=== PATIENT | male | born 1955 | race Caucasian/White ===

== ENCOUNTER → 2022-08-10 | Outpatient (CLI) | payer MEDICARE, SELFPAY ==
[2022-08-10 10:23] LABS: Vitamin D,25 Hydroxy 32.3 ng/mL
[2022-08-10 10:33] LABS: Anion Gap 5 (5-15); BUN 21 mg/dL (7-18); BUN/Creat Ratio 16.2 RATIO (10-20); Calcium,Total 9.2 mg/dL (8.5-10.1); Chloride 105 mmol/L (98-107); EST Glomerular Filtration Rate 59 mL/min (>60); Est Glom Filt Rate - Afr Amer 71 mL/min (>60); Glucose 111 mg/dL (74-106); PSA,Total - Annual Screen 2.71 ng/mL (0.00-4.00); Potassium 4.3 mmol/L (3.5-5.1); Sodium Level 140 mmol/L (136-145)
== END | disposition home or self-care (01) ==
PROVIDERS: PCP Family Medicine; Referring Provider Family Medicine; Visit Provider Family Medicine
DX: Z00.00 Encounter for general adult medical examination without abnormal findings (principal); E55.9 Vitamin D deficiency, unspecified
CPT/HCPCS: 36415; 80048; 82306; 84153; 84403; G0103

== ENCOUNTER 2023-02-14 11:16 | Emergency (ER) | payer MEDICARE, SELFPAY ==
[2023-02-14 11:17] VITALS: PULSE 54; RESP 15; TEMP 35.1; O2SAT 100; BMI 28.1
--- NOTE | 2023-02-14 11:23 | ED.RN ---
RIGHT FOOT NOTED TO BE PALE AND UNABLE TO PALPATE A PULSE AT THIS TIME. DOPPLER USED.
--- NOTE | 2023-02-14 11:25 | CT_ITS ---
We are attempting to reach an attending provider to discuss findings. An addendum with communication details will be sent when the communication is complete. STUDY: CTA CHEST REASON FOR EXAM: Male, 67 years old. Back pain -- With runoff RADIATION DOSAGE (If Supplied By Facility): CTDIvol = ( 11.74 ) mGy, DLP = ( 1540.04 ) mGycm TECHNIQUE: The examination was performed with the intravenous administration of [id number] 100ML. Post-processing of the angiographic images was performed, with multiplanar reformation and 3D reconstruction. Individualized dose optimization techniques were used for this CT. COMPARISON: CTA of the abdomen and pelvis dated February 14, 2023 FINDINGS: A [place] a dissection is present starting at the supravalvular region of the proximal/ascending thoracic aorta continuing through the aortic arch and the full length of the descending thoracic aorta, down into the abdominal aorta where the flap and false lumen is on the right and very shallow and partially thrombosed. The dissection flap of the abdominal aorta continues into the origins of the bilateral common iliac arteries with thrombosis of the left false lumen and significant thrombosis of the false and true lumen of the right common iliac artery although some blood flow and contrast is seen distal to the thrombus and continuing into both the right internal and external arteries. However left lobe throughout the full length of the right common femoral artery is poor in the lumen appears moderately narrowed or partially collapsed likely due to the near complete thrombotic occlusion of near the origin of the right common iliac artery in the lower abdomen. No contrast opacification is seen in the right popliteal artery or the calf arteries which is likely due to poor hemodynamics rather than complete occlusion. There is mild aneurysmal dilatation of the aortic arch maximally measuring 3.16 cm in diameter. The dissection flap does not extend into the branches of the right brachiocephalic, left common carotid artery, or left subclavian artery. There is no vascular perforation or mediastinal hemorrhage. Normal enhancement of the main pulmonary artery and right and left pulmonary arteries. Normal enhancement of the bilateral peripheral pulmonary arteries. There is no demonstrated pulmonary embolism. There is atherosclerotic calcification of the aortic arch with tortuosity. Normal heart and pericardium. There are calcifications of the coronary arteries. Normal mediastinum. Normal hilar regions. Normal visualized trachea and bronchi. The lungs are well expanded. Normal pulmonary parenchyma. No consolidation or pulmonary edema or pleural effusion is seen. Normal pleura. Normal chest wall structures. There are degenerative changes of thoracic spine. Normal visualized upper abdomen. Small benign cysts are seen in the liver. Moderate size simple cyst is present anterior aspect of the right kidney measuring 4.[address]/CTA Chest W/WO Contrast IMPRESSION: 1. A [place] a dissection is present starting at the supravalvular region of the proximal/ascending thoracic aorta continuing through the aortic arch and the full length of the descending thoracic aorta, down into the abdominal aorta where the flap and false lumen is on the right and very shallow and partially thrombosed. The dissection flap of the abdominal aorta continues into the origins of the bilateral common iliac arteries with thrombosis of the left false lumen and significant thrombosis of the false and true lumen of the right common iliac artery although some blood flow and contrast is seen distal to the thrombus and continuing into both the right internal and external arteries. However left lobe throughout the full length of the right common femoral artery is poor in the lumen appears moderately narrowed or partially collapsed likely due to the near complete thrombotic occlusion of near the origin of the right common iliac artery in the lower abdomen. 2. No contrast opacification is seen in the right popliteal artery or the calf arteries which is likely due to poor hemodynamics rather than complete occlusion. 3. There is mild aneurysmal dilatation of the aortic arch maximally measuring 3.16 cm in diameter. 4. The dissection flap does not extend into the branches of the right brachiocephalic, left common carotid artery, or left subclavian artery. There is no vascular perforation or mediastinal hemorrhage Electronically Signed: Tyson Conley MD at 13:13 EDT ,
--- NOTE | 2023-02-14 11:26 | EKG12_ITS ---
Test Reason : cp Blood Pressure : / mmHG Vent. Rate : 051 BPM Atrial Rate : 051 BPM P-R Int : 140 ms QRS Dur : 094 ms QT Int : 482 ms P-R-T Axes : 019 061 029 degrees QTc Int : 444 ms Sinus bradycardia Otherwise normal ECG Confirmed by MICA HUBER, LORENA ([id number]), editorial assistant PJ ARCOS ([id number]) on 02/15/2023 9:07:09 AM Referred By: Confirmed By:LORENA NINO MD
--- NOTE | 2023-02-14 11:29 | EX.ED.DYSGE1 ---
HPI History of Present Illness Chief Complaint: Chest Pain Informant: patient Onset/Context/Timing Onset: Today and Hours (1.5) Context: Sudden Onset Quality: Aching Location: Right groin and lower leg Worsened by: Nothing Relieved by: Nothing Narrative Narrative: Patient presents with pain in his chest, back, and right groin that began today. Patient states he was doing some push-ups when this began. Patient states his pain currently is only in his right groin and right lower extremity. Patient admits to some weakness of his right leg. Patient states he is unable to move his right leg. Patient also admits to some numbness in his right leg. Patient denies any weakness or numbness to his right arm. Patient states he is having some pain in his back currently. Patient denies any chest pain at this time. Patient states this resolved after several minutes. PFSH PFSH Medical History no medical history no medical history Home Medications escitalopram oxalate 10 mg tablet 10 mg PO DAILY 02/14/23 [History Last Taken Unknown] Allergy/AdvReac Type Severity Reaction Status Date / Time No Known Allergies Allergy Verified 02/14/23 11:17 Surgical History no surgical history no surgical history Social History Smoking Status: Former smoker ROS ROS ED Constitutional Constitutional ED: Denies chills or fever(s) Eyes Eyes: Denies blurry vision or change in vision ENT ENT ED: Denies rhinorrhea or sore throat Cardiovascular Cardiovascular: Reports chest pain; Denies palpitations Respiratory/Chest Respiratory/Chest: Denies cough or dyspnea Gastrointestinal Gastrointestinal: Denies nausea or vomiting Genitourinary Genitourinary ED: Denies dysuria or hematuria Musculoskeletal Musculoskeletal: Reports back pain; Denies neck pain Integumentary Denies abscess or rash Neurologic Neurologic: Reports paresthesias RLE and weakness; Denies headache(s) Allergic/Immunologic Allergic/Immunologic ED: Denies mouth swelling or urticaria EXAM Physical Exam Const Vital Signs: 02/14/23 11:17 02/14/23 11:22 02/14/23 11:30 Temperature 95.1 F L Temperature Source Temporal Pulse Rate 54 L Respiratory Rate 15 Respiratory Effort Short of Breath Respiratory Pattern Normal Blood Pressure 118/56 L Blood Pressure Mean 76 Pulse Ox 100 Oxygen Delivery Method Room Air Oxygen Flow Rate (L/min) 02/14/23 11:51 02/14/23 12:03 Temperature Temperature Source Pulse Rate 74 68 Respiratory Rate 22 H 15 Respiratory Effort Respiratory Pattern Blood Pressure 174/55 H 173/60 H Blood Pressure Mean 94 97 Pulse Ox 100 100 Oxygen Delivery Method Room Air Nasal Cannula Oxygen Flow Rate (L/min) 2 Positive well nourished and well developed General Appearance ED: well developed HEENT Reports moist mucous membranes Neck supple and no JVD Resp normal respiratory effort and clear to auscultation bilaterally Cardio regular rhythm Rate: bradycardia GI non-distended Auscultation: normoactive bowel sounds Palpation: soft Extremity Extremity Narrative: There is diminished pedal pulse on the right. There is delayed capillary refill of the toes. The skin is warm. There is a palpable femoral pulse bilaterally, it is slightly weaker on the right. Neuro oriented x3 and CN's II-XII intact bilaterally Sensorium / Orientation: alert Motor Exam: strength abnormal other (Strength is 0/5 in the right lower extremity. Strength is 5/5 bilaterally in the upper extremities and left lower extremity.) Psych Mood & Affect: anxious MDM MDM MDM Narrative Medical decision making narrative: Differential diagnosis includes aortic dissection, aortic aneurysm, stroke, ischemic limb, cardiac dysrhythmia, cardiac ischemia. CTA of the chest, abdomen, and pelvis with runoff will be obtained to assess for aortic dissection, a aortic aneurysm, and limb ischemia. CBC will be obtained to assess for anemia and leukocytosis. Basic metabolic profile will be obtained to assess for electrolyte abnormality and renal function. Type and screen will be obtained for possible transfusion. High-sensitivity troponin will be obtained to assess for cardiac ischemia. Serum lactate will be obtained to assess for limb ischemia. Lab Data Labs: Laboratory Results - last 24 hr 02/14/23 02/14/23 02/14/23 11:19 11:19 11:19 WBC 14.2 H RBC 4.73 Hgb 14.3 Hct 43.6 MCV 92.2 MCH 30.2 MCHC 32.8 RDW Std Deviation 42.7 RDW Coeff of [place] 12.6 Plt Count 218 MPV 9.6 Immature Gran % (Auto) 1.400 H Neut % (Auto) 43.5 L Lymph % (Auto) 40.3 [place] % (Auto) 9.9 Eos % (Auto) 4.1 Baso % (Auto) 0.8 Absolute Neuts (auto) 6.2 Absolute Lymphs (auto) 5.72 H Nucleated RBC % 0 PT 13.3 INR 1.0 APTT 25.4 Sodium 139 Potassium 3.3 L Chloride 106 Carbon Dioxide 19.0 L Anion Gap 14 BUN 19 H Creatinine 1.68 H Estim Creat Clear Calc 41.85 Est GFR (MDRD) Af Amer 53 L Est GFR (MDRD) Non-Af 44 L BUN/Creatinine Ratio 11.3 Glucose 175 H Calcium 8.8 Radiography Diagnostic Testing: CTA of the chest, abdomen, and pelvis with runoffs was obtained. There is an aortic dissection of the ascending and descending aorta into the left iliac artery. There is diminished blood flow of the right lower extremity from the mid thigh distally. This was interpreted by the radiologist and was also independently reviewed by myself. EKG Initial EKG: Attestation: I personally reviewed and interpreted this EKG as follows: Interpretation: No Acute Injury Pattern and Sinus Bradycardia (51) Comments: EKG was obtained. On my independent interpretation, it showed a sinus bradycardia with a rate of 51. ND interval, QRS interval, and QTc intervals were all normal. [place] was normal. There are no acute ST or T wave changes. Prior EKG tracings: not available for review Prior: No Prior Treatment and Re-Evaluation :: Patient was given IV fluids, morphine, and Zofran. Patient was advised of the need for urgent transfer for repair of his aortic dissection. Auto launch was called and the patient will need to be transferred by helicopter. Case was discussed with thoracic surgery and vascular surgery at [facility]. Patient was accepted to main [facility] at [facility]. Patient and spouse understood and were agreeable with the plan. All questions were answered. Critical Care Time Critical Care Time: Yes Critical care time (excluding procedures): 30-74 minutes (39), Including time spent:, Discussing w/Patient &/or Family/Inclusion Specialist, Discussing w/Consultants, Arranging Admission or Transfer and Performing Direct Patient Care at Bedside Discharge Plan Triage Chief Complaint: Chest Pain ED Provider: Roc Jules Dx/Rx/DC Orders Clinical Impression: Aortic dissection, thoracoabdominal, Bradycardia, Ischemia of right lower extremity Prescriptions: No Action escitalopram oxalate 10 mg tablet 10 mg PO DAILY Label Comments: Take 1 tablet by mouth daily Primary Care Provider: Elieser Coulter Referrals: Elieser Coulter MD [Primary Care Provider] - Disposition Disposition: Acute Care Hospital Discharge Location: [facility]
[2023-02-14 11:30] VITALS: BP 118/56
[2023-02-14] MEDS: Ondansetron 4 MG/2 ML Vial IV (11:31)
[2023-02-14] MEDS: 0.9% Normal Saline 1,000 ML 999 ML IV (11:31)
[2023-02-14] MEDS: Morphine 4 MG/ML Syringe IV (11:31)
[2023-02-14 11:42] LABS: Absolute Lymphocyte Count 5.72 X10^3/uL (0.83-4.51); Absolute Neutrophil Count 6.2 X10^3/uL (2.0-7.7); Basophil# 0.11 X10^3/uL; Basophil% 0.8 % (0-1); Eosinophil# 0.58 X10^3/uL; Eosinophils% 4.1 % (0-5); Hematocrit 43.6 % (40-54); Hemoglobin 14.3 g/dL (13.0-16.5); Lymphocyte # 5.72 X10^3/ul (0.83-4.51); Lymphocyte % 40.3 % (19-41); Mean Corp Hgb Conc 32.8 g/dL (32-36); Mean Corpuscular Hgb 30.2 pg (27.0-32.0); Mean Corpuscular Volume 92.2 fL (80-94); Mean Platelet Vol. 9.6 fl (6.2-12.0); Monocyte# 1.41 X10^3/uL; Monocyte% 9.9 % (0-10); NRBC Flagged by Analyzer 0 % (0-5); Neutrophil # 6.17 X10^3/uL (2.7-7.7); Neutrophil % 43.5 % (47-70); POSITIVE DIFFERENTIAL YES; Platelet Count 218 K/mm3 (150-450); RBC Distribution Width CV 12.6 % (11.6-14.6); RBC Distribution Width SD 42.7 fl (35.1-43.9); Red Blood Count 4.73 M/mm3 (4.6-6.2); White Blood Count 14.2 K/mm3 (4.4-11.0)
[2023-02-14 11:51] VITALS: BP 174/55; PULSE 74; RESP 22; O2SAT 100
[2023-02-14 11:52] LABS: Anion Gap 14 (5-15); BUN 19 mg/dL (7-18); BUN/Creat Ratio 11.3 RATIO (10-20); Calcium,Total 8.8 mg/dL (8.5-10.1); Chloride 106 mmol/L (98-107); Creatinine, Serum 1.68 mg/dL (0.70-1.30); EST Glomerular Filtration Rate 44 mL/min (>60); Est Glom Filt Rate - Afr Amer 53 mL/min (>60); Estimated Creatinine Clearance 41.85 ml/min; Glucose 175 mg/dL (74-106); Potassium 3.3 mmol/L (3.5-5.1); Sodium Level 139 mmol/L (136-145)
[2023-02-14 11:56] LABS: Differential Indicated SCAN CRITERIA MET
[2023-02-14] MEDS: HYDROmorphone 1 MG/ML Syringe IV (11:57)
[2023-02-14 12:03] VITALS: BP 173/60; PULSE 68; RESP 15; O2SAT 100
[2023-02-14 12:03] LABS: Prothrombin Time (Protime)PT. 13.3 SECONDS (11.7-14.9)
--- NOTE | 2023-02-14 12:03 | CT_ITS ---
STUDY: CTA OF THE ABDOMINAL AORTA AND BILATERAL LOWER EXTREMITIES REASON FOR EXAM: Male, 67 years old. BACK PAIN RADIATION DOSAGE (If Supplied By Facility): CTDIvol = ( 11.74 ) mGy, DLP = ( 1540.04 ) mGycm TECHNIQUE: Axial CT angiography multi-detector data acquisition was obtained from the to the following intravenous administration of 100ML ISOVUE 370. Axial images and MIP images were reconstructed from the axial data set. Post-processing of the angiographic images was performed, with multiplanar reformation and 3D reconstruction. Individualized dose optimization techniques were used for this CT. TECHNICAL QUALITY: Good COMPARISON: CTA of the chest dated February 14, 2023 Descriptors of Narrowing: None (0%) Mild (< 50%) Moderate (50-70%) Severe (70-90%) Subtotal/Total Occlusion (90-100%) Non-Evaluable (technically non-diagnostic FINDINGS: A [place] a dissection is present starting at the supravalvular region of the proximal/ascending thoracic aorta continuing through the aortic arch and the full length of the descending thoracic aorta, down into the abdominal aorta where the flap and false lumen is on the right and very shallow and partially thrombosed. The dissection flap of the abdominal aorta continues into the origins of the bilateral common iliac arteries with thrombosis of the left false lumen and significant thrombosis of the false and true lumen of the right common iliac artery although some blood flow and contrast is seen distal to the thrombus and continuing into both the right internal and external arteries. However left lobe throughout the full length of the right common femoral artery is poor in the lumen appears moderately narrowed or partially collapsed likely due to the near complete thrombotic occlusion of near the origin of the right common iliac artery in the lower abdomen. No contrast opacification is seen in the right popliteal artery or the calf arteries which is likely due to poor hemodynamics rather than complete occlusion. There is mild aneurysmal dilatation of the aortic arch maximally measuring 3.16 cm in diameter. The dissection flap does not extend into the branches of the right brachiocephalic, left common carotid artery, or left subclavian artery. There is no vascular perforation or mediastinal hemorrhage Abdominal aorta: Maximum diameter of the abdominal aorta is 2.90 cm just below the diaphragmatic hiatus. Celiac and superior mesenteric arteries: Normal origin from the [place] vessel and not a dissection flap. No demonstrated narrowing. Inferior mesenteric artery: No demonstrated narrowing. Right renal artery(arteries): Mild atherosclerotic plaque and narrowing at the origin but normal distal to this region. Left renal artery(arteries): No demonstrated narrowing. Right common iliac artery: There complete thrombosis. Right external iliac artery: No demonstrated narrowing. Right internal iliac artery: No demonstrated narrowing. Left common iliac artery: Medial dissection flap and thrombosis of the false lumen but normal perfusion of three quarters of the true lumen. Left external iliac artery: No demonstrated narrowing. Left internal iliac artery: No demonstrated narrowing. RIGHT LOWER EXTREMITY Right common femoral artery: There is mild diffuse narrowing. Right profundus femoris: No demonstrated narrowing. Right superficial femoral: There is moderate diffuse narrowing. Right popliteal artery: No visualized contrast opacification likely due to poor hemodynamics/flow due to the upstream near complete robotic occlusion. Right tibioperoneal trunk: No visualized contrast opacification likely due to poor hemodynamics/flow due to the upstream near complete robotic occlusion. Right anterior tibial artery: No visualized contrast opacification likely due to poor hemodynamics/flow due to the upstream near complete robotic occlusion. Right posterior tibial artery: No visualized contrast opacification likely due to poor hemodynamics/flow due to the upstream near complete robotic occlusion. Right peroneal artery: No visualized contrast opacification likely due to poor hemodynamics/flow due to the upstream near complete robotic occlusion. LEFT LOWER EXTREMITY Left common femoral artery: No demonstrated narrowing. Left profundus femoris: No demonstrated narrowing. Left superficial femoral: No demonstrated narrowing. Left popliteal artery: No demonstrated narrowing. Left tibioperoneal trunk: No demonstrated narrowing. Left anterior tibial artery: No demonstrated narrowing. Left posterior tibial artery: No demonstrated narrowing. Left peroneal artery: No demonstrated narrowing. NONVASCULAR FINDINGS: The visualized lung bases are unremarkable. Normal liver. Small cysts are present in the liver. No intrahepatic biliary duct dilatation or liver mass. Normal gallbladder and extrahepatic biliary system. Normal spleen. Normal pancreas. Normal bilateral adrenal glands. Moderate size simple cyst of the anterior aspect of the right kidney measuring 4.61 cm.. Normal left kidney. No hydronephrosis or renal masses. No large stones. There is a small hiatal hernia. Normal small intestine. There are multiple colonic diverticula consistent with diverticulosis. No bowel dilatation or obstruction. No free air or free fluid. The appendix is visualized and appears normal. Normal inferior vena cava. Normal retroperitoneum. Normal urinary bladder. The prostate gland is mildly to moderately enlarged herniated into the base of the bladder. Normal abdominal wall. There are diffuse degenerative changes of the visualized lumbar spine. CT/CTA Abd w/Runoff W/WO Contrast IMPRESSION: 1. A [place] a dissection is present starting at the supravalvular region of the proximal/ascending thoracic aorta continuing through the aortic arch and the full length of the descending thoracic aorta, down into the abdominal aorta where the flap and false lumen is on the right and very shallow and partially thrombosed. The dissection flap of the abdominal aorta continues into the origins of the bilateral common iliac arteries with thrombosis of the left false lumen and significant thrombosis of the false and true lumen of the right common iliac artery although some blood flow and contrast is seen distal to the thrombus and continuing into both the right internal and external arteries. However left lobe throughout the full length of the right common femoral artery is poor in the lumen appears moderately narrowed or partially collapsed likely due to the near complete thrombotic occlusion of near the origin of the right common iliac artery in the lower abdomen. 2. No contrast opacification is seen in the right popliteal artery or the calf arteries which is likely due to poor hemodynamics rather than complete occlusion. 3. There is mild aneurysmal dilatation of the aortic arch maximally measuring 3.16 cm in diameter. 4. The dissection flap does not extend into the branches of the right brachiocephalic, left common carotid artery, or left subclavian artery. There is no vascular perforation or mediastinal hemorrhage Electronically Signed: Tyson Conley MD at 13:22 EDT ,
[2023-02-14 12:04] LABS: Partial Thromboplast Time 25.4 Seconds (24.1-36.2)
[2023-02-14 12:11] VITALS: BP 173/57; PULSE 59; RESP 22; TEMP 36.2; O2SAT 100
[2023-02-14 12:11] LABS: Troponin-I HS (w/2H Reflex) 7 pg/mL (3.0-78.0)
[2023-02-14 12:14] LABS: Lactic Acid 7.6 mmol/L (0.4-1.9)
[2023-02-14 12:21] VITALS: BP 177/74; PULSE 75; RESP 26; O2SAT 100
--- NOTE | 2023-02-14 12:28 | ED.RN ---
[facility] critical care transport here to get patient.
--- NOTE | 2023-02-14 12:47 | ED.RN ---
REPORT CALLED TO [facility] ED CHARGE NURSE AT THIS TIME.
[2023-02-14 13:55] LABS: Reflex Troponin-HS? (from REC) Y
[2023-02-14 15:55] LABS: Reflex Lactate? Y
== END 2023-02-14 12:36 | disposition short-term general hospital (02) ==
PROVIDERS: Emergency Provider Emergency Medicine; PCP Family Medicine; Visit Provider Emergency Medicine
DX: I71.22 Aneurysm of the aortic arch, without rupture (principal); Z87.891 Personal history of nicotine dependence; R00.1 Bradycardia, unspecified; I99.8 Other disorder of circulatory system
CPT/HCPCS: 71275; 75635; 80048; 83605; 84484; 85025; 85610; 85730; 86850; 86900; 86901; 93005; 96361; 96374; 96375; 99285; J7030; Q9967; A4216; J2405

== ENCOUNTER → 2023-06-15 | Outpatient (CLI) | payer MEDICARE, SELFPAY ==
[2023-06-15 12:21] LABS: Absolute Lymphocyte Count 2.05 X10^3/uL (0.83-4.51); Absolute Neutrophil Count 5.3 X10^3/uL (2.0-7.7); Basophil# 0.08 X10^3/uL; Basophil% 0.9 % (0-1); Eosinophil# 0.55 X10^3/uL; Eosinophils% 6.1 % (0-5); Hematocrit 33.6 % (40-54); Hemoglobin 9.9 g/dL (13.0-16.5); Lymphocyte # 2.05 X10^3/ul (0.83-4.51); Lymphocyte % 22.9 % (19-41); Mean Corp Hgb Conc 29.5 g/dL (32-36); Mean Corpuscular Hgb 25.4 pg (27.0-32.0); Mean Corpuscular Volume 86.2 fL (80-94); Mean Platelet Vol. 9.1 fl (6.2-12.0); Monocyte# 0.88 X10^3/uL; Monocyte% 9.8 % (0-10); NRBC Flagged by Analyzer 0 % (0-5); Neutrophil % 59.2 % (47-70); Platelet Count 317 K/mm3 (150-450); RBC Distribution Width CV 17.6 % (11.6-14.6); RBC Distribution Width SD 54.8 fl (35.1-43.9)
== END | disposition home or self-care (01) ==
LOC: MTLAB 09:35
PROVIDERS: PCP Family Medicine; Referring Provider Family Medicine; Visit Provider Family Medicine
DX: R31.9 Hematuria, unspecified (principal)
CPT/HCPCS: 36415; 85025

== ENCOUNTER → 2023-08-07 | Outpatient (CLI) | payer MEDICARE, SELFPAY ==
[2023-08-07 10:08] LABS: Absolute Lymphocyte Count 2.49 X10^3/uL (0.83-4.51); Absolute Neutrophil Count 5.7 X10^3/uL (2.0-7.7); Basophil# 0.07 X10^3/uL; Basophil% 0.7 % (0-1); Eosinophil# 0.66 X10^3/uL; Eosinophils% 6.6 % (0-5); Hematocrit 38.1 % (40-54); Hemoglobin 10.9 g/dL (13.0-16.5); Lymphocyte # 2.49 X10^3/ul (0.83-4.51); Lymphocyte % 25.1 % (19-41); Mean Corp Hgb Conc 28.6 g/dL (32-36); Mean Corpuscular Hgb 23.7 pg (27.0-32.0); Mean Corpuscular Volume 82.8 fL (80-94); Mean Platelet Vol. 9.2 fl (6.2-12.0); Monocyte# 0.98 X10^3/uL; Monocyte% 9.9 % (0-10); NRBC Flagged by Analyzer 0 % (0-5); Neutrophil # 5.66 X10^3/uL (2.7-7.7); Neutrophil % 56.9 % (47-70); Platelet Count 302 K/mm3 (150-450); RBC Distribution Width CV 16.6 % (11.6-14.6); RBC Distribution Width SD 50.3 fl (35.1-43.9); White Blood Count 9.9 K/mm3 (4.4-11.0)
[2023-08-07 10:34] LABS: ALB/GLOB Ratio 0.6 RATIO (0.9-2.4); AST(SGOT) 17 U/L (15-37); Alanine Aminotransfer ALT/SGPT 24 U/L (16-61); Alkaline Phosphatase 146 U/L (45-117); Anion Gap 3 (5-15); BUN 16 mg/dL (7-18); Calcium,Total 8.6 mg/dL (8.5-10.1); Chloride 107 mmol/L (98-107); Cholesterol 207 mg/dL (200); Creatinine, Serum 1.23 mg/dL (0.70-1.30); EST Glomerular Filtration Rate 62 mL/min (>60); Est Glom Filt Rate - Afr Amer 76 mL/min (>60); Globulin 4.7 g/dL (2.2-4.2); Glucose 112 mg/dL (74-106); High Density Lipoprotein 65 mg/dL; Potassium 4.3 mmol/L (3.5-5.1); Protein, Total 7.7 g/dL (6.4-8.2); Sodium Level 139 mmol/L (136-145); Triglycerides 92 mg/dL; Very Low Density Lipoprotein 18 mg/dL (5-40)
== END | disposition home or self-care (01) ==
PROVIDERS: PCP Family Medicine; Visit Provider Family Medicine
DX: D64.9 Anemia, unspecified (principal); R79.89 Other specified abnormal findings of blood chemistry; E78.5 Hyperlipidemia, unspecified
CPT/HCPCS: 36415; 80053; 80061; 85025

== ENCOUNTER → 2024-09-22 | Outpatient (CLI) | payer MEDICARE, SELFPAY ==
[2024-09-22 10:31] LABS: ALB/GLOB Ratio 0.8 RATIO (0.9-2.4); AST(SGOT) 18 U/L (15-37); Alanine Aminotransfer ALT/SGPT 22 U/L (16-61); Albumin, Serum 3.2 g/dL (3.2-5.0); Alkaline Phosphatase 109 U/L (45-117); Anion Gap 1 (5-15); BUN 20 mg/dL (7-18); BUN/Creat Ratio 14.8 RATIO (10-20); Calcium,Total 8.9 mg/dL (8.5-10.1); Chloride 107 mmol/L (98-107); Cholesterol 165 mg/dL (200); Creatinine, Serum 1.35 mg/dL (0.70-1.30); EST Glomerular Filtration Rate 56 mL/min (>60); Est Glom Filt Rate - Afr Amer 68 mL/min (>60); Globulin 3.9 g/dL (2.2-4.2); Glucose 108 mg/dL (74-106); High Density Lipoprotein 44 mg/dL; Potassium 4.1 mmol/L (3.5-5.1); Protein, Total 7.1 g/dL (6.4-8.2); Sodium Level 138 mmol/L (136-145); Triglycerides 166 mg/dL; Very Low Density Lipoprotein 33 mg/dL (5-40)
[2024-09-23 05:33] LABS: Absolute Lymphocyte Count 2.19 X10^3/uL (0.83-4.51); Basophil# 0.11 X10^3/uL; Basophil% 1.1 % (0-1); Eosinophil# 0.72 X10^3/uL; Eosinophils% 7.2 % (0-5); Hematocrit 47.3 % (40-54); Hemoglobin 15.2 g/dL (13.0-16.5); Lymphocyte # 2.19 X10^3/ul (0.83-4.51); Lymphocyte % 21.9 % (19-41); Mean Corp Hgb Conc 32.1 g/dL (32-36); Mean Corpuscular Hgb 29.6 pg (27.0-32.0); Mean Platelet Vol. 9.1 fl (6.2-12.0); Monocyte# 0.83 X10^3/uL; Monocyte% 8.3 % (0-10); NRBC Flagged by Analyzer 0 % (0-5); Neutrophil # 6.03 X10^3/uL (2.7-7.7); Neutrophil % 60.5 % (47-70); Platelet Count 254 K/mm3 (150-450); RBC Distribution Width CV 12.9 % (11.6-14.6); RBC Distribution Width SD 43.3 fl (35.1-43.9); Red Blood Count 5.14 M/mm3 (4.6-6.2)
== END | disposition home or self-care (01) ==
LOC: MFPLAB 08:38
PROVIDERS: PCP Family Medicine; Referring Provider Family Medicine; Visit Provider Family Medicine
DX: I10 Essential (primary) hypertension (principal); D64.9 Anemia, unspecified
CPT/HCPCS: 36415; 80053; 80061; 85025

== ENCOUNTER → 2025-03-18 | Outpatient (CLI) | payer MEDICARE, SELFPAY ==
[2025-03-18 18:13] LABS: ALB/GLOB Ratio 1.3 RATIO (0.9-2.4); AST(SGOT) 24 U/L (<=37); Alanine Aminotransfer ALT/SGPT 24 U/L (<=46); Albumin, Serum 3.6 g/dL (3.4-4.8); Alkaline Phosphatase 92 U/L (40-129); Anion Gap 9 (5-15); BUN 27 mg/dL (4-19); Calcium,Total 8.8 mg/dL (7.6-11.0); Carbon Dioxide 24.1 mmol/L (21.0-32.0); Chloride 106 mmol/L (98-108); Cholesterol 200 mg/dL (<=200); Creatinine, Serum 1.18 mg/dL (0.70-1.20); EST Glomerular Filtration Rate 67 (>60); Globulin 2.9 g/dL (2.2-4.2); Glucose 97 mg/dL (70-99); High Density Lipoprotein 52 mg/dL; Low Density Lipoprotein Calc. 124 mg/dL; Potassium 4.9 mmol/L (3.3-5.1); Protein, Total 6.5 g/dL (5.9-8.4); Sodium Level 139 mmol/L (133-145); Total Bilirubin 0.31 mg/dL (0.00-1.30); Triglycerides 122 mg/dL; Very Low Density Lipoprotein 24 mg/dL (5-40); cholesterol:hdl ratio screen 3.86
== END | disposition home or self-care (01) ==
LOC: MFPLAB 11:36
PROVIDERS: PCP Family Medicine; Referring Provider Family Medicine; Visit Provider Family Medicine
DX: I10 Essential (primary) hypertension (principal)
CPT/HCPCS: 36415; 80053; 80061

== ENCOUNTER → 2025-05-15 | Outpatient (CLI) | payer MEDICARE, SELFPAY ==
[2025-05-15 21:15] LABS: HIV Nonreactive (Nonreactive); Syphilis Antibodies Nonreactive (Nonreactive)
== END | disposition home or self-care (01) ==
LOC: MFPLAB 16:29
PROVIDERS: PCP Family Medicine; Referring Provider Family Medicine; Visit Provider Family Medicine
DX: Z20.2 Contact with and (suspected) exposure to infections with a predominantly sexual mode of transmission (principal)
CPT/HCPCS: 36415; 86695; 86696; 86703; 86780; 87491; 87591

== ENCOUNTER 2025-09-02 09:05 | Day surgery (SDC) | payer MEDICARE, SELFPAY ==
--- NOTE | 2025-08-31 16:21 | PAT.ANE_ITS ---
Pre-Assessment Diagnosis/Proposed Procedure Planned Operative Procedure(s): CSCOPE Anesthesia History Anesthesia History - chemistry account manager: Anesthesia History - chemistry account manager Hx Hospitalization No 08/31/25 13:30 Any Problems With Anesthesia No 08/31/25 13:30 Cholinesterase deficiency No 08/31/25 13:30 You/Your Family Experience No 08/31/25 13:30 fever (hyperthermia) with Relationship Recent Exposure to Contagious Disease Does patient have nerve No 08/31/25 13:30 stimulator Patient instructed to have device shut off --Does patient have Pacemaker or ICD? When Was Last Pacemaker Check QUESTION #4 FULL TEXT: You/Your Family Experience fever (hyperthermia) with Anesthesia Last Oral Intake Last Oral intake: Last Oral Intake NPO since Meds taken in AM with sips of water? Meds patient instructed to take am of surgery PONV PONV - chemistry account manager: PONV - chemistry account manager Female No 08/31/25 13:30 HX of Motion Sickness No 08/31/25 13:30 HX of N/V After Surgery No 08/31/25 13:30 Non-Smoker Yes 08/31/25 13:30 Duration of Surgery greater No 08/31/25 13:30 than 60 minutes Number of Risk Factors 1 08/31/25 13:30 PONV Score Low Risk 08/31/25 13:30 Height & Weight Height & Weight: Anesthesia: Height & Weight Height 5 ft 8 in 02/14/23 11:17 Respiratory Assessment Respiratory Assessment - chemistry account manager: Respiratory Tract Infection Hx - chemistry account manager Hx Respiratory Tract Infection No 08/31/25 13:30 STOP Sleep Apnea STOP Sleep Apnea - chemistry account manager: STOP Sleep Apnea - chemistry account manager Hx Hypertension No 08/31/25 13:30 Hx Sleep Apnea No 08/31/25 13:30 CPAP BIPAP Do you snore loudly (louder No 08/31/25 13:30 than talking or can be heard Do you often feel tired/ No 08/31/25 13:30 fatigued/ sleepy during daytime? Has anyone observed you stop No 08/31/25 13:30 breathing during sleep? STOP Results Negative 08/31/25 13:30 QUESTION #5 FULL TEXT : Do you snore loudly (louder than talking or can be heard through closed doors)? Tobacco Use History Tobacco Use History - chemistry account manager: Tobacco Use History - chemistry account manager Tobacco Use Smoking Status Former smoker 08/31/25 13:30 Hx Tobacco Use No 08/31/25 13:30 Years Smoking Packs Smoked per Day Smoking Cessation Date was Yes - quit smoking within 15 08/31/25 13:30 within the last 15 years years Hx Smoking Cessation Date 11/22/17 08/31/25 13:30 Hx Smoking Cessation Counseling Hematologic Medial History Hematologic Hx - chemistry account manager: Hematologic Medical Hx - clinical immunologist Hx of Blood Transfusion No 08/31/25 13:30 Hx of Transfusion in last 3 No 08/31/25 13:30 Months Date of Last Transfusion (if within last 3 months) Ever experience any problems No 08/31/25 13:30 with transfusion(s)? Specify any problems Hx of Preganancy in last 3 N/A 08/31/25 13:30 Months Nurse Filling Out Transfusion NBUCHER 08/31/25 13:30 & Questions: Date: 08/31/25 08/31/25 13:30 Time: 13:31 08/31/25 13:30 Patient unable to answer at this time (ie. confused, unrespo /Reproduction History /Reproductive History - chemistry account manager: /Reproductive Hx- chemistry account manager Hx Now No 08/31/25 13:30 Gestational Age (in weeks): EDC: Hx Hx Para Hx Section SAB No 08/31/25 13:30 Does the father of the baby or his family experience fever w Father of the baby Malignant Hypertension history comment [facility] Medical History (Updated 08/31/25 @ 13:38 by Vicki Carrillo) Wears glasses Depression History of IBS Heartburn Gastric reflux Former smoker Leg cramps History of irregular heartbeat Cardiology follow-up encounter Aortic dissection Home Medications ?Medication ?Instructions ?Recorded ?Last Taken ?Type escitalopram oxalate 10 mg tablet 10 mg PO DAILY 02/14 Unknown History aspirin 81 mg capsule 81 mg PO DAILY 08/31/25 Unkn own History metoprolol succinate 50 mg 50 mg PO QHS 08/31/25 Unkno wn History tablet,extended release 24 hr tadalafil 10 mg tablet 10 mg PO DAILY PRN sexual ac tivity 08/31/25 Unknown History Allergy/AdvReac Type Severity Reaction Status Date / Time No Known Allergies Allergy Verified 08/31/25 13:28 Surgical History (Updated 08/31/25 @ 13:38 by Vicki Carrillo) History of coronary artery stent placement History of excision of mass Social History Smoking Status: Former smoker Audit: Pertinent Findings Pertinent Findings EKG Perinent findings: 02/14/2023 sinus bradycardia 51 bpm. Otherwise normal EKG Echo (EF%) pertinent findings: 12/26/2023. Left ventricle normal size. EF 60?5%. Consult pertinent findings: [facility] cardiology follow-up 12/01/2024. Aortic surveillance status post open repair type a dissection no further intervention at this time. Repeat CTA 1 year. Recommendation Anesthesia Recommendation Anesthesia recommendation: OPTIMIZED for anesthesia
--- NOTE | 2025-09-01 13:52 | H&P.OPEN ---
[facility] - General General Date of Service: 09/02/25 HPI Narrative TABBY STOLL, is a 69 M who presents for screening colonoscopy. Patient never had previous colonoscopy. Patient's mom did have colon cancer at age 86 as well as his niece and her 40s. Patient had an aortic dissection in 2022 and does have 3 stent placed is currently on aspirin?held. Patient denies any chronic abdominal pain/nausea/vomiting/reflux. Patient has bowel movements daily denies any blood. [facility] Medical History Wears glasses Depression History of IBS Heartburn Gastric reflux Former smoker Leg cramps History of irregular heartbeat Cardiology follow-up encounter Aortic dissection Home Medications ?Medication ?Instructions ?Recorded ?Last Taken ?Type escitalopram oxalate 10 mg tablet 10 mg PO DAILY 02/14/23 Unknown History aspirin 81 mg capsule 81 mg PO DAILY 08/31/25 08/25/25 History metoprolol succinate 50 mg 50 mg PO QHS 08/31/25 09/01/25 History tablet,extended release 24 hr tadalafil 10 mg tablet 10 mg PO DAILY PRN sexual activity 08/31/25 09/01/25 History 5 mg Allergy/AdvReac Type Severity Reaction Status Date / Time No Known Allergies Allergy Verified 09/02/25 09:21 Surgical History History of coronary artery stent placement History of excision of mass Social History Smoking Status: Former smoker Past Medical/Surgical History Planned Operation Planned Operative Procedure(s): CSCOPE Previous Hospitalizations/Surgeries HX Hospitalizations: No Any Problems With Anesthesia: No You/Your Family Experience Fever (Hyperthermia) With Anes: No Cholinesterase deficiency: No Cardiovascular Hx of Irregular Heartbeat and/or Afib: No Hx Heart Attack: No Hx Congestive Heart Failure: No Hx Hypertension: No Hx Internal Defibrillator: No Hx Pacemaker: No Respiratory Hx Chronic Obstructive Pulmonary Disease (COPD): No Hx Asthma: No Hx Emphysema: No Hx Sleep Apnea: No Hx Respiratory Tract Infection/Cold (presently): No Do You Snore Loudly (louder than talking or can be heard): No Do You Often Feel Tired/ Fatigued/ Sleepy Dring Daytime?: No Has Anyone Observed You Stop Breathing During Sleep?: No Result (for STOP score): Negative Smoking Status: Former smoker Gastrointestinal Hx Ulcer: No Neurological Hx Seizures: No Hx Multiple Sclerosis: No Hx Parkinson's Disease: No Hx Head/Neck Injury: Yes Hx Headaches: No Hx Back Injury/Pain: No Does patient have nerve stimulator: No Reproduction : No Psycho/Social Hx Anxiety: No Hx Depression: No Allergies No Known Allergies Allergy (Verified 09/02/25 09:21) Discharge Is Pt Admitted From a [facility], or a Long Term: No After D/C, Where Do you Plan to Go: Return Home Physical Exam Const alert, oriented x3 and no apparent distress HEENT normocephalic and head/scalp atraumatic Resp normal respiratory effort Cardio regular rate GI soft to palpation and non-tender; Negative for non-distended Palpation: Negative for guarding Extremity no clubbing, cyanosis or edema Skin no rashes or lesions noted Neuro CN's II-XII intact bilaterally Psych mental status grossly normal Assessment & Plan Assessment/Plan (1) Screening for colon cancer: Surgery Risks - Colonoscopy I discussed with the patient the risks of the procedure: Yes Risks Include but are not Limited To: Risks include but are not limited to: Bleeding, perforation requiring further surgery, inability to complete colonoscopy requiring barium enema.
[2025-09-02] VITALS (9 sets, daily range): BP systolic 107–130; BP diastolic 53–67; PULSE 50–62; RESP 16–18; TEMP 36.1–36.3; O2SAT 95–99; BMI 26.1
[2025-09-02] MEDS: Lactated Ringers 1,000 ML 15 ML IV (09:33)
--- NOTE | 2025-09-02 09:42 | PRE.ANES_ITS ---
ASA Classification* ASA Classification ASA Classification: 2 Assessment & Plan Anesthesia* Anesthesia Assessment Anesthesia Assessment: Discussed sedation and/or anesthesia options, risks, benefits, and alternatives with patient/parents/legal guardian/POA. Questions invited. The patient/parents/legal guardian/POA seems to understand and agrees to proceed with anesthesia plan. Reviewed the physical assessment, medical history, allergy history and patient home medications list prior to surgery/procedure/anesthetic and documented any changes. Performed airway and anesthesia risk assessments. Anesthesia Type Anesthesia Type: MAC History Source History Obtained from:: Patient and Chart Anesthesia Focused Assessment* Temperature: 97.0 F Pulse Rate: 60 Blood Pressure: 130/60 Respiratory Rate: 18 Pulse Ox: 98 Oxygen Delivery Method: Room Air Airway Assessment Mouth opens: >3 cm Mallampati Score: II Teeth Condition: Intact Labs Anesthesia Preop lab: CBC WBC, (4.4-11.0) 10.0 K/mm3 09/22/24, 08:39 RBC, (4.6-6.2) 5.14 M/mm3 09/22/24, 08:39 Hgb, (13.0-16.5) 15.2 g/dL 09/22/24, 08:39 Hct, (40-54) 47.3 % 09/22/24, 08:39 Plt Count, (150-450) 254 K/mm3 09/22/24, 08:39 CHEMISTRY Potassium, (3.3-5.1) 4.9 mmol/L 03/18/25, 11:38 Sodium, (133-145) 139 mmol/L 03/18/25, 11:38 BUN, (4-19) 27 mg/dL H 03/18/25, 11:38 Creatinine, (0.70-1.20) 1.18 mg/dL 03/18/25, 11:38 Glucose, (70-99) 97 mg/dL 03/18/25, 11:38 COAG PT, (11.7-14.9) 13.3 SECONDS 02/14/23, 11:19 Pre-Assessment Diagnosis/Proposed Procedure Planned Operative Procedure(s): CSCOPE Anesthesia History Anesthesia History - primer expeditor and drier: Anesthesia History - primer expeditor and drier Hx Hospitalization No 09/01/25 13:54 Any Problems With Anesthesia No 09/01/25 13:54 Cholinesterase deficiency No 09/01/25 13:54 You/Your Family Experience No 09/01/25 13:54 fever (hyperthermia) with Relationship Recent Exposure to Contagious No 09/02/25 09:23 Disease Does patient have nerve No 09/01/25 13:54 stimulator Patient instructed to have device shut off --Does patient have Pacemaker No 09/02/25 09:26 or ICD? When Was Last Pacemaker Check QUESTION #4 FULL TEXT: You/Your Family Experience fever (hyperthermia) with Anesthesia Last Oral Intake Last Oral intake: Last Oral Intake NPO since 20:00 09/02/25 09:26 Meds taken in AM with sips of No 09/02/25 09:23 water? Meds patient instructed to take am of surgery PONV PONV - primer expeditor and drier: PONV - primer expeditor and drier Female No 08/31/25 13:30 HX of Motion Sickness No 08/31/25 13:30 HX of N/V After Surgery No 08/31/25 13:30 Non-Smoker Yes 08/31/25 13:30 Duration of Surgery greater No 08/31/25 13:30 than 60 minutes Number of Risk Factors 1 08/31/25 13:30 PONV Score Low Risk 08/31/25 13:30 Height & Weight Height & Weight: Anesthesia: Height & Weight Height 5 ft 8 in 09/02/25 09:26 Weight: 78 kg 09/02/25 09:26 Body Mass Index (BMI) 26.1 09/02/25 09:26 Respiratory Assessment Respiratory Assessment - primer expeditor and drier: Respiratory Tract Infection Hx - primer expeditor and drier Hx Respiratory Tract Infection No 09/01/25 13:54 STOP Sleep Apnea STOP Sleep Apnea - primer expeditor and drier: STOP Sleep Apnea - primer expeditor and drier Hx Hypertension No 09/01/25 13:54 Hx Sleep Apnea No 09/01/25 13:54 CPAP BIPAP Do you snore loudly (louder No 09/01/25 13:54 than talking or can be heard Do you often feel tired/ No 09/01/25 13:54 fatigued/ sleepy during daytime? Has anyone observed you stop No 09/01/25 13:54 breathing during sleep? STOP Results Negative 09/01/25 13:54 QUESTION #5 FULL TEXT : Do you snore loudly (louder than talking or can be heard through closed doors)? Tobacco Use History Tobacco Use History - primer expeditor and drier: Tobacco Use History - primer expeditor and drier Tobacco Use Smoking Status Former smoker 09/01/25 13:54 Hx Tobacco Use No 08/31/25 13:30 Years Smoking Packs Smoked per Day Smoking Cessation Date was Yes - quit smoking within 15 08/31/25 13:30 within the last 15 years years Hx Smoking Cessation Date 11/22/17 08/31/25 13:30 Hx Smoking Cessation Counseling Hematologic Medial History Hematologic Hx - primer expeditor and drier: Hematologic Medical Hx - rn clinical documentation specialist Hx of Blood Transfusion No 08/31/25 13:30 Hx of Transfusion in last 3 No 08/31/25 13:30 Months Date of Last Transfusion (if within last 3 months) Ever experience any problems No 08/31/25 13:30 with transfusion(s)? Specify any problems Hx of Preganancy in last 3 N/A 08/31/25 13:30 Months Nurse Filling Out Transfusion NBUCHER 08/31/25 13:30 & Questions: Date: 08/31/25 08/31/25 13:30 Time: 13:31 08/31/25 13:30 Patient unable to answer at this time (ie. confused, unrespo /Reproduction History /Reproductive History - primer expeditor and drier: /Reproductive Hx- primer expeditor and drier Hx Now No 09/01/25 13:54 Gestational Age (in weeks): EDC: Hx Hx Para Hx Section SAB No 08/31/25 13:30 Does the father of the baby or his family experience fever w Father of the baby Malignant Hypertension history comment Active Medications Active Medications: Current Medications Generic Name Dose Route Start Last Admin Trade Name Freq PRN Reason Stop Dose Admin Lactated Ringer's 1,000 mls @ 15 mls/hr 09/02/25 09:15 09/02/25 09:33 IV 15 mls/hr .Q48H ANDRE Administration PFSH Medical History Wears glasses Depression History of IBS Heartburn Gastric reflux Former smoker Leg cramps History of irregular heartbeat Cardiology follow-up encounter Aortic dissection Home Medications ?Medication ?Instructions ?Recorded ?Last Taken ?Type escitalopram oxalate 10 mg tablet 10 mg PO DAILY 02/14 Unknown History aspirin 81 mg capsule 81 mg PO DAILY 08/31/2511/18 History metoprolol succinate 50 mg 50 mg PO QHS 08/31/2509/01 History tablet,extended release 24 hr tadalafil 10 mg tablet 10 mg PO DAILY PRN sexual ac tivity 08/31/25 09/01/25 History 5 mg Allergy/AdvReac Type Severity Reaction Status Date / Time No Known Allergies Allergy Verified 09/02/25 09:21 Surgical History History of coronary artery stent placement History of excision of mass Social History Smoking Status: Former smoker Addt'l Information Additional Findings: > 4 Mets Review of Systems (Anesthesia) ROS Narrative System reviewed and no additional complaints, except as documented. Physical Exam Const alert and oriented x3 HEENT dentition normal Neck full ROM General: normal visual inspection Resp normal respiratory effort and normal air movement Auscultation: clear to auscultation bilaterally Cardio regular rate and regular rhythm Neuro oriented x3 and moves all extremities
--- NOTE | 2025-09-02 10:30 | COLBX_PTH ---
PATIENT: TABBY STOLL Jr. LOC: EN U#:[id number] AGE/SX: 69/M ROOM: RE09/02/[address]: Dr. Rebecca Moore MD : 1955 BED: DIS: 09/02/2025 SPEC #: [id number] RECD: 09/02/25 12:45 STATUS: DANIELLA REQ #: [id number] MARYLU: 09/02/25 10:[address]: Rebecca Moore DEPT: SURGICAL PATHOLOGY RECD BY: Jayme Biggs ENTERED: 09/02/25 14:12 SP TYPE: COLON BX OTHR DR: Dr. Elieser Coulter MD Tissues: A - Ascending colon Procedures: Surgery Specimen Level IV HEADER OPERATION: Colonoscopy with polypectomy PRE-OP DIAGNOSIS: Screening for colon cancer TISSUE SUBMITTED: A- Ascending colon polyp MICROSCOPIC DIAGNOSIS A. Colon, ascending, polyp, polypectomy: - Inflammatory/hyperplastic polyp. MICROSCOPIC DESCRIPTION Slides are reviewed. GROSS DESCRIPTION A. Received in fixative is one container labeled with the patient's name and designated Ascending colon polyp. The specimen consists of one irregular fragment of brantley tissue that measures 0.5 cm. The specimen is totally submitted in one cassette. [place] 09/02/2025 CPT:13829
--- NOTE | 2025-09-02 11:23 | OP.PROVAT_ITS ---
09/02/2025 Elieser Coulter MD [address] [place] [address] Re : Colonoscopy procedure for Steve Arzate Dear Dr. Coulter This procedure was performed on Tuesday, September 02, 2025. My impressions and recommendations are as follows: Impressions : - One less than 5 mm polyp in the ascending colon, removed with a cold biopsy forceps. Resected and retrieved. - Diverticulosis in the sigmoid colon and in the descending colon. - The examination was otherwise normal on direct and retroflexion views. Recommendations : - Discharge patient to home. - Resume previous diet. - Continue present medications. - Await pathology results. - Repeat colonoscopy in 5 years for surveillance based on pathology results. My findings are described in the full procedure note, which is enclosed. If I can be of further assistance, please feel free to contact me at Doctor phone number(s): , Work: . Sincerely, MD Rebecca Toscano MD 09/02/2025 11:22:51 AM This report has been signed electronically.
--- NOTE | 2025-09-02 11:23 | OP.COLON_ITS ---
Patient Name: Steve Arzate Procedure Date: 09/02/2025 10:47 AM Date of : 1955 Age: 69 Procedure: Colonoscopy Indications: Screening for colorectal malignant neoplasm Providers: Rebecca Moore MD Referring MD: Elieser Coulter MD Medicines: Monitored Anesthesia Care Patient Profile: This is a 69 year old male. Last Colonoscopy: none. The patient's first colonoscopy is today. Complications: No immediate complications. Procedure: Pre-Anesthesia Assessment: - Prior to the procedure, a History and Physical was performed, and patient medications and allergies were reviewed. The patient's tolerance of previous anesthesia was also reviewed. The risks and benefits of the procedure and the sedation options and risks were discussed with the patient. All questions were answered, and informed consent was obtained. Prior Anticoagulants: The patient has taken no anticoagulant or antiplatelet agents except for aspirin. ASA Grade Assessment: Per anesthesia. After reviewing the risks and benefits, the patient was deemed in satisfactory condition to undergo the procedure. After I obtained informed consent, the scope was passed under direct vision. Throughout the procedure, the patient's blood pressure, pulse, and oxygen saturations were monitored continuously. The pediatric colonoscope was introduced through the anus and advanced to the cecum, identified by the appendiceal orifice, ileocecal valve and palpation. The colonoscopy was performed without difficulty. The patient tolerated the procedure well. The quality of the bowel preparation was good. Scope In: 10:58:54 AM Scope Withdrawal Time 0 hours 10 minutes 43 seconds Scope Out: 11:17:51 AM Total Procedure Duration Time 0 hours 18 minutes 57 seconds Findings: The perianal and digital rectal examinations were normal. A less than 5 mm polyp was found in the ascending colon. The polyp was sessile. The polyp was removed with a cold biopsy forceps. Resection and retrieval were complete. Multiple small-mouthed diverticula were found in the sigmoid colon and descending colon. The exam was otherwise without abnormality on direct and retroflexion views. Impression: - One less than 5 mm polyp in the ascending colon, removed with a cold biopsy forceps. Resected and retrieved. - Diverticulosis in the sigmoid colon and in the descending colon. - The examination was otherwise normal on direct and retroflexion views. Recommendation: - Discharge patient to home. - Resume previous diet. - Continue present medications. - Await pathology results. - Repeat colonoscopy in 5 years for surveillance based on pathology results. Procedure Code(s): --- Professional --- 72818, PT, Colonoscopy, flexible; with biopsy, single or multiple Diagnosis Code(s): --- Professional --- Z12.11, Encounter for screening for malignant neoplasm of colon D12.2, Benign neoplasm of ascending colon K57.30, Diverticulosis of large intestine without perforation or abscess without bleeding CPT copyright 2021 [employer]. All rights reserved. The codes documented in this report are preliminary and upon port drier review may be revised to meet current compliance requirements. MD Rebecca Toscano MD 09/02/2025 11:22:51 AM This report has been signed electronically. Number of Addenda: 0 Note Initiated On: 09/02/2025 10:47 AM
--- NOTE | 2025-09-02 11:28 | PCM.POST.ANE ---
Anesthesia: Postop Eval I Current Vital Signs Temperature: 97.1 F Pulse Rate: 62 Blood Pressure: 117/65 Respiratory Rate: 16 Pulse Ox: 98 Oxygen Delivery Method: Room Air Assessment Airway patent: Yes Spontaneous unlabored respirations: Yes Mental status: Awake and Calm nausea: No Vomiting: No Anesthesia Complication: No Fluid Hydration Crystalloid volume administer (ml): 500 Total IV fluid infused: 500 Progress Note Anesthesia document: Postop Eval 1 completed: Yes
--- NOTE | 2025-09-02 11:45 | PCM.POSTANE2 ---
Anesthesia Postop Eval I Sum Postop Eval Completion status Anesthesia document: Postop Eval 1 completed: Yes Anesthesia Postop Eval I Summary Anesthesia Postop Eval I Summary: Anesthesia Postop Eval I: Assessment Summary Airway patent Yes 09/02/25 11:30 [email or web address] Spontaneous unlabored Yes 09/02/25 11:30 [email or web address] respirations Mental status Awake,Calm 09/02/25 11:30 [email or web address] nausea No 09/02/25 11:30 [email or web address] Vomiting No 09/02/25 11:30 [email or web address] Anesthesia Postop Eval I: Fluid Summary Crystalloid volume administer 500 09/02/25 11:30 [email or web address] (ml) Colloids volume administered ( ml) Blood Product volume administered (ml) Total IV fluid infused 500 09/02/25 11:30 [email or web address] Anesthesia Postop Eval I: Summary Notes Anesthesia Complication No 09/02/25 11:30 [email or web address] Anesthesia Complication Comment: Post-operative progress note Anesthesia: Postop Eval II Evaluation Mental status: Awake and Calm Pain Level: 0 nausea: No Vomiting: No
== END 2025-09-02 12:14 | disposition home or self-care (01) ==
LOC: EN 09:05 → AC 09:07
PROVIDERS: PCP Family Medicine; Referring Provider Family Medicine; Visit Provider Surgery
PROC: 0DJD8ZZ Inspection of Lower Intestinal Tract, Via Natural or Artificial Opening Endoscopic (ICD-10-PCS; CPT 45378; principal; 2025-09-02 10:25)
DX: Z12.11 Encounter for screening for malignant neoplasm of colon (principal); K57.30 Diverticulosis of large intestine without perforation or abscess without bleeding; Z79.82 Long term (current) use of aspirin; Z87.891 Personal history of nicotine dependence; Z80.0 Family history of malignant neoplasm of digestive organs; Z95.5 Presence of coronary angioplasty implant and graft; K21.9 Gastro-esophageal reflux disease without esophagitis; Z79.899 Other long term (current) drug therapy; K63.5 Polyp of colon
CPT/HCPCS: 45380; 88305; J2405